=== PATIENT | female | born 1960 | race Caucasian/White ===

== ENCOUNTER 2017-12-29 00:40 | Day surgery (SDC) | payer OTHER ==
[~2017-12-29] VITALS: Ht 162.6 cm; Wt 68.5 kg
[~2017-12-29 00:40] MED LIST: ALLERGY SHOTS IM; CETI10CA8 PO; CHOL10005 PO; FLUT16SP19 NS; MULT-768 PO
[2017-12-29] MEDS ORDERED: NORMOSOL R SOLN(*) 1000 ML BAG 1,000 ML IV PRN (06:30)
[2017-12-29] MEDS ORDERED: LIDOCAINE/SOD BICARB 8.4% SYR ID ONE (06:30)
[2017-12-29 06:31] VITALS: BP 109/84
[2017-12-29] MEDS ORDERED: PROPOFOL EMUL(*) 10MG/ML 20 ML 20 ML ONE ×2 (07:09→07:47)
[2017-12-29 08:04] VITALS: BP 108/60
--- NOTE | 2017-12-29 08:04 | Short(Outpt) Discharge Summary ---
Discharge Summary Reason for Hosp/Final Diag: (1) History of colon polyps Status: Chronic Hospital Course & Plan: Colonoscopy completed without problems, normal. Departure Discharge to: Home, Self Care Discharge Instructions Home Meds Reported Medications [Allergy Shots] No Conflict Check, IM QWK for ALLERGIES 12/17/17 Multivitamin/Iron/Folic Acid (CENTRUM COMPLETE MULTIVIT TAB) 1 Each Tablet, 1 EACH PO DAILY 12/17/17 Fluticasone Prop 50 Mcg Ns (FLONASE 50 MCG NS) 16 Gm [place].susp, 2 SPRAYS NS QDAY Y for ALLERGY SYMPTOMS, BOT 12/17/17 Cholecalciferol (Vitamin D3) (VITAMIN D3) 1,000 Unit Tablet, 4000 UNIT PO DAILY , TAB 12/07/17 Cetirizine Hcl (ZYRTEC) 10 Mg Capsule, 10 MG PO QDAY, CAPSULE 12/07/17 Diet: Regular Activity: As Tolerated Special Instructions: Your colonoscopy was completed without problems and your prep was excellent (Good Job!!). I didn't find any polyps or other abnormalities. Your colonoscopy was completely normal. I recommend that your next colonoscopy be in 5 years due to your previous history of colon polyps. MICHELLE ZULETA MD Dec 29, 2017 08:04
[2017-12-29 08:15] VITALS: BP 108/79
[2017-12-29 08:30] VITALS: BP 112/80
[2017-12-29 08:39] VITALS: BP 116/72
[2017-12-29 08:40] VITALS: BP 115/75
== END 2017-12-29 08:52 | disposition home or self-care (01) ==
LOC: OR 00:40
PROVIDERS: ATTEND Surgery
DX: Z12.11 Encounter for screening for malignant neoplasm of colon (principal); Z86.010 Personal history of colon polyps
CPT/HCPCS: 00812; 45378; J2704

== ENCOUNTER → 2018-05-07 | Outpatient (CLI) | payer OTHER ==
--- NOTE | 2018-05-07 16:50 | RADIOLOGY IMAGING REPORT ---
FACILITY: [facility] PATIENT NAME: Shelby Espana : 1960 MR: [id number] V: [id number] EXAM DATE: ORDERING PHYSICIAN: TIP SHEPPARD TECHNOLOGIST: Location: [facility] [place] Patient: Shelby Espana : 1960 Visit/Account:[id number] Date of Sevice: 05/07/2018 Left lower extremity venous Doppler duplex ultrasound scan. HISTORY: Left popliteal pain for one day. COMPARISON: Left knee MRI scan 03/22/2018 (report only). A color flow Doppler duplex ultrasound examination with spectral analysis was performed on the lower extremity. The common femoral vein, superficial femoral vein, and popliteal vein are normal. These ve ssels compress and augment normally. The upper portions of the trifurcation veins are unremarkable. P ortions of the deep veins of the calf are obscured. No intraluminal filling defects are identified to suggest acute thrombus in the deep venous system. A 2.7 cm cyst is present in the left popliteal soft tissues, also noted on the prior knee MRI report. A venous reflux study was not performed at this time. Note that Doppler ultrasound is somewhat insensitive below the knee. 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 Negative for acute deep vein thrombosis. Report Dictated By: Jefferson Quezada MD at 05/07/2018 4:41 PM Report E-Signed By: Jefferson Quezada MD at 05/07/2018 4:45 PM WSN:[id number]
== END ==
LOC: US 14:55
PROVIDERS: ATTEND Nurse Practitioner Family
DX: M25.562 Pain in left knee (principal); M71.22 Synovial cyst of popliteal space [Baker], left knee

== ENCOUNTER → 2018-05-28 | Outpatient (CLI) | payer OTHER ==
--- NOTE | 2018-06-03 08:30 | RADIOLOGY IMAGING REPORT ---
FACILITY: [facility] PATIENT NAME: BENEDICTO FRANCIS : [id number] MR: [id number] V: [id number] EXAM DATE: [id number] ORDERING PHYSICIAN: TIP SHEPPARD TECHNOLOGIST: Lianet Aviles PROCEDURE:BILATERAL DIGITAL SCREENING MAMMOGRAM WITH CAD ASSISTED INTERPRETATION & 3D TOMOSYNTHESIS COMPARISON:Prior mammograms dated 02/12/17, 02/08/15, 02/02/14 INDICATIONS:SCREENING FINDINGS: The breasts are heterogeneously dense which can obscure small masses. The parenchymal pattern has remained stable allowing for difference in mammographic technique & patient positioning. DIAGNOSTIC CATEGORY 1--NEGATIVE. RECOMMENDATIONS: ROUTINE MAMMOGRAM AND CLINICAL EVALUATION. IMPRESSION: BIRADS 1: Negative. No significant abnormality is seen. Dictated by: Gi Kumar M.D. on 06/01/2018 at 17:14 Transcribed by: EVE on 06/02/2018 at 13:27 Approved by: Gi Kumar M.D. on 06/03/2018 at 8:28 [facility]
== END ==
LOC: MAMO 04:39
PROVIDERS: ATTEND Nurse Practitioner Family
DX: Z12.31 Encounter for screening mammogram for malignant neoplasm of breast (principal)
CPT/HCPCS: 77063; 77067

== ENCOUNTER → 2018-07-14 | Outpatient (CLI) | payer OTHER | LOC: LAB 15:23 | PROVIDERS: ATTEND Nurse Practitioner Family | DX: R07.9 Chest pain, unspecified (principal) | CPT/HCPCS: 36415; 82040; 82247; 82310; 82374; 82435; 82565; 82947; 84075; 84132; 84155; 84295; 84450; 84460; 84484; 84520; 85379 ==